=== PATIENT | female | born 1985 | race Caucasian/White ===

== ENCOUNTER 2020-10-08 13:02 | Emergency (ER) | payer MEDICAID ==
[~2020-10-08] VITALS: Ht 165.1 cm; Wt 98.0 kg
[2020-10-08] MEDS ORDERED: METHOCARBAMOL 500MG TABLET PO ONE (14:30)
[2020-10-08] MEDS ORDERED: KETOROLAC 60MG/2ML VIAL IM ONE (14:30)
[2020-10-08] MEDS ORDERED: IBUP-2029 MT (15:29)
[2020-10-08] MEDS ORDERED: METH500T6 MT (15:29)
[2020-10-08 15:47] VITALS: BP 121/68
== END 2020-10-08 15:48 | disposition home or self-care (01) ==
LOC: ER 13:45
DX: S29.012A Strain of muscle and tendon of back wall of thorax, initial encounter (principal); F41.9 Anxiety disorder, unspecified; F31.9 Bipolar disorder, unspecified; X58.XXXA Exposure to other specified factors, initial encounter; Y93.89 Activity, other specified; Y92.89 Other specified places as the place of occurrence of the external cause; Y99.8 Other external cause status
CPT/HCPCS: 96372; 99283; J1885

== ENCOUNTER 2022-03-23 12:02 | Emergency (ER) | payer MEDICAID ==
[~2022-03-23] VITALS: Ht 165.1 cm; Wt 100.0 kg
[~2022-03-23 12:02] MED LIST: IBUP-2029 MT; METH-773 MT
[2022-03-23 12:23] VITALS: BP 129/81
[2022-03-23] MEDS ORDERED: DEXAMETHASONE 10 MG/ML VIAL IV ONE (12:45)
[2022-03-23] MEDS ORDERED: ACETAMINOPHEN 325MG TABLET PO ONE (12:45)
== END 2022-03-23 13:17 | disposition home or self-care (01) ==
LOC: ER 12:20
DX: J06.9 Acute upper respiratory infection, unspecified (principal)
CPT/HCPCS: 81025; 96374; 99283; J1100